=== PATIENT | female | born 1955 | race Caucasian/White ===

== ENCOUNTER 2017-09-22 10:58 | Outpatient (CLI) | payer OTHER ==
--- NOTE | 2017-10-12 08:33 | MMO ---
BILATERAL MAMMOGRAMS: History: Screening mammography. Comparison: Prior exams from [place] were unavailable for direct comparison. FINDINGS: Baseline study. Heterogeneously dense fibroglandular tissue throughout each breast is present. No dominant mass or muñoz spicious calcifications. Metallic marker in the left breast indicates area of prior biopsy. This stud y is interpreted with the assistance of computer aided detection. IMPRESSION: BIRADS category 2 - benign findings. Suggest routine follow up. POS: CHRISTIANO
== END 2017-09-22 10:59 | disposition home or self-care (01) ==
LOC: SCSMAMMO 10:58
PROVIDERS: ATTEND Obstetrics & Gynecology
DX: Z12.31 Encounter for screening mammogram for malignant neoplasm of breast (principal)
CPT/HCPCS: 77067; G0202

== ENCOUNTER 2018-10-31 07:42 | Outpatient (CLI) | payer OTHER ==
--- NOTE | 2018-10-31 09:37 | BD ---
DEXA BONE DENSITY STUDY: HISTORY: Postmenopausal. FINDINGS: Left Forearm BMD (g/cm2) Ulnar distal 0.299 T-Score: -2.5 Mid 0.421 T-Score: -3.4 One-third 0.522 T-Score: -2.9 Total 0.396 T-Score: -3.4 Lumbar Spine: L1 0.939 T-Score: -0.5 L2 0.971 T-Score: -0.5 L3 1.018 T-Score: -0.6 L4 1.015 T-Score: -0.4 L1-L4 0.987 T-Score: -0.5 Impression: Normal bone mineral density of lumbar spine. Osteoporosis of the left forearm. POS: CHRISTIANO
== END 2018-10-31 07:43 | disposition home or self-care (01) ==
LOC: BICMAMMO 07:42
PROVIDERS: ATTEND Orthopaedic Surgery
DX: M81.0 Age-related osteoporosis without current pathological fracture (principal)
CPT/HCPCS: 77080

== ENCOUNTER 2019-09-17 11:27 | Outpatient (CLI) | payer OTHER ==
--- NOTE | 2019-09-17 13:14 | MMO ---
Bilateral MAMMO Bilat Screen [facility]. CLINICAL HISTORY: Patient is 64 years old and is seen for screening. The patient has a history of left Excisional Biopsy more than 10 years ago - benign. VIEWS: The views performed were: bilateral craniocaudal with tomosynthesis and bilateral mediolateral oblique with tomosynthesis. FILMS COMPARED: The present examination has been compared to a prior imaging study performed at [facility] on 09/22/2017. This study has been interpreted with the assistance of computer-aided detection. MAMMOGRAM FINDINGS: The breasts are extremely dense, which may lower the sensitivity of mammography. There is a biopsy clip seen in the left breast. There are no suspicious masses, suspicious calcifications, or new areas of architectural distortion. IMPRESSION: THERE IS NO MAMMOGRAPHIC EVIDENCE OF MALIGNANCY. A ROUTINE FOLLOW-UP MAMMOGRAM IN 1 YEAR IS RECOMMENDED. THE RESULTS OF THIS EXAM WERE SENT TO THE PATIENT. ACR BI-RADS Category 2 - Benign finding MAMMOGRAPHY NOTE: 1. A negative mammogram report should not delay a biopsy if a dominant of clinically suspicious mass is present. 2. Approximately 10% to 15% of breast cancers are not detected by mammography. 3. Adenosis and dense breasts may obscure an underlying neoplasm. Reported by: MICHELLE WELDON MD Electonically Signed: [id number]
== END 2019-09-17 11:28 | disposition home or self-care (01) ==
LOC: BICMAMMO 11:27
PROVIDERS: ATTEND Obstetrics & Gynecology
DX: Z12.31 Encounter for screening mammogram for malignant neoplasm of breast (principal)
CPT/HCPCS: 77063; 77067

== ENCOUNTER 2019-11-08 10:07 | Outpatient (CLI) | payer OTHER ==
--- NOTE | 2019-11-08 11:18 | BD ---
EXAM: DEXA bone density examination HISTORY: 64-year-old postmenopausal female for screening COMPARISON: None FINDINGS: L1--bone mineral density 1.024 g/sq cm; T score 0.3 L2--bone mineral density 1.039 g/sq cm; T score 0.1 L3--bone mineral density 1.086 g/sq cm; T score 0.0 L4--bone mineral density 1.053 g/sq cm; T score -0.1 Total L1-L4--bone mineral density 1.051 g/sq cm; T score 0.0 Left distal third forearm--bone mineral density0.530; T score -2.7 Total distal left forearm--bone mineral density 0.393; T score -3.4 IMPRESSION: Normal bone density. Although the forearm shows the patient is osteoporotic, the spine is more accurate for determining bone density.
== END 2019-11-08 10:08 | disposition home or self-care (01) ==
LOC: BICMAMMO 10:07
PROVIDERS: ATTEND Physician Assistant Surgical
DX: M81.0 Age-related osteoporosis without current pathological fracture (principal)
CPT/HCPCS: 77080

== ENCOUNTER 2019-11-28 06:38 | Outpatient (CLI) | payer OTHER ==
[2019-11-28 14:57] LABS: #Basophils 0.1 thou/uL (0.0-0.2); #Eosinphils 0.2 thou/uL (0.0-0.7); #Lymphocytes 1.5 thou/uL (1.20-3.40); #Monocytes 0.5 thou/uL (0.11-0.59); #Neutrophils 2.8 thou/uL (1.40-6.50); %Basophils 1.6 % (0.0-1.0); %Eosinophils 3.6 % (0.0-10.0); %Monocytes 10.3 % (0.0-10.0); %Neutrophils 54.6 % (42.0-75.0); Hemoglobin 13.4 g/dL (12.0-16.0); Mean Corpuscular HGB CONC 33.3 g/dL (32.0-36.0); Mean Corpuscular Hemoglobin 32.5 pg (27.0-31.0); Mean Corpuscular Volume 97.8 fL (78.0-98.0); Platelet Count 356 thou/uL (130-400); RBC Distribution Width 11.8 % (11.5-14.5); White Blood Cell (WBC) Count 5.1 thou/uL (4.8-10.8)
[2019-11-28 15:09] LABS: Bacteria/HPF None Seen HPF (None Seen); Bilirubin Negative (Negative); Blood, Urine Negative (Negative); Clarity Turbid (Clear); Glucose, Urine (Dipstick) Normal (Negative); Leukocyte Negative Leu/uL (Negative); Nitrite Negative (Negative); Protein, Urine (Dipstick) Negative (Neg-Trace); RBC/HPF None Seen HPF (0-3); Squamous Epithelial 0-3 HPF (0-3); Urobilinogen Normal mg/dL (Less than 2); WBC/HPF None Seen HPF (0-3)
[2019-11-28 15:10] LABS: INR-International Normal Ratio 0.9; Prothrombin Time 12.2 SEC (12.0-14.7)
== END 2019-11-28 06:39 | disposition home or self-care (01) ==
LOC: LABBT 06:38
PROVIDERS: ATTEND Orthopaedic Surgery
DX: Z01.818 Encounter for other preprocedural examination (principal); M17.12 Unilateral primary osteoarthritis, left knee
CPT/HCPCS: 81001; 85025; 85610; 86850; 86900; 86901; 87081; 93005; 93010

== ENCOUNTER 2019-11-28 13:00 | Inpatient (IN) | payer OTHER ==
[2019-12-02 15:52] LABS: Anion Gap 10 mmol/L (10-20); BUN (Urea Nitrogen) 9 mg/dL (9.8-20.1); Calc. Creatinine Clearance 0 mL/min (70-130); Calcium 9.1 mg/dL (7.8-10.44); Carbon Dioxide 24 mmol/L (23-31); Chloride 108 mmol/L (98-107); Estimated GFR-MDRD 86; Glucose 92 mg/dL (80-115); Potassium 3.4 mmol/L (3.5-5.1); Sodium 139 mmol/L (136-145)
[2019-12-09] MEDS ORDERED: Tranexamic Acid 1,000 MG/10 ML VIAL ONE (06:05)
[2019-12-09] MEDS ORDERED: Sodium Chloride 0.9% 100 ML ONE (06:05)
[2019-12-09] MEDS ORDERED: Fentanyl 100 MCG/2 ML VIAL ONE ×2 (06:10→06:21)
[2019-12-09] MEDS ORDERED: Midazolam HCl 2 mg/ml Syrup 5 ml UD Cup ONE (06:21)
[2019-12-09] MEDS ORDERED: Lidocaine 1% (PF) 30 ML VIAL ONE (06:22)
[2019-12-09] MEDS ORDERED: Midazolam HCl 2 mg/2 ml Vial ONE (06:22)
[2019-12-09] MEDS ORDERED: Bupivacaine 0.75% W/DEXTROSE 8.25% 2 ML AMP ONE (06:51)
[2019-12-09] MEDS ORDERED: Propofol 1,000 MG/100 ML VIAL IV ONE (06:51)
[2019-12-09] MEDS ORDERED: Ondansetron PF 4 MG/2 ML Vial IVP PRN ×2 (06:59→09:43)
[2019-12-09] MEDS ORDERED: HYDROcodone/Acetaminophen 10/325 mg Tablet PO PRN ×2 (06:59)
[2019-12-09] MEDS ORDERED: Zolpidem Tartrate 5 MG TAB PO PRN ×2 (06:59→09:43)
[2019-12-09] MEDS ORDERED: Promethazine HCl 25 MG/ML VIAL IM PRN ×2 (06:59→08:59)
[2019-12-09] MEDS ORDERED: Acetaminophen 325 MG TAB PO PRN ×2 (06:59→09:43)
[2019-12-09] MEDS ORDERED: diphenhydrAMINE 25 MG CAP PO PRN (06:59)
[2019-12-09] MEDS ORDERED: traMADol HCl 50 MG TAB PO PRN ×3 (07:00→09:43)
[2019-12-09] MEDS ORDERED: MORPHINE 5 MG/10 ML PF VIAL ONE (07:00)
[2019-12-09] MEDS ORDERED: Diazepam 5 MG TAB PO PRN (07:00)
[2019-12-09] MEDS ORDERED: Ropivacaine 0.5% HCl/PF (150 MG/30 ML VIAL) ONE (07:59)
[2019-12-09] MEDS ORDERED: Sodium Chloride 0.9% 10 ML ONE (07:59)
[2019-12-09] MEDS ORDERED: Ketorolac Tromethamine 30 MG/ML VIAL ONE (07:59)
[2019-12-09] MEDS ORDERED: EPINEPHrine 1 MG/ML AMP ONE (07:59)
[2019-12-09] MEDS ORDERED: Ondansetron HCl/PF 4 MG/2 ML Vial IVP PRN (08:59)
[2019-12-09] MEDS ORDERED: Promethazine HCl 25 MG/ML VIAL SLOW IVP PRN (08:59)
[2019-12-09] MEDS ORDERED: Non-Formulary Item 1 EACH (Cholecalciferol (Vitamin D3) [Vitamin D3] 10,000 UNIT) PO SCH (09:00)
[2019-12-09] MEDS ORDERED: PHYTONADIONE 100 MCG PO SCH (09:00)
[2019-12-09] MEDS ORDERED: Multivit, Therapeutic 1 TAB PO SCH (09:00)
[2019-12-09] MEDS ORDERED: Thyroid 30 MG TAB PO SCH (09:00)
[2019-12-09] MEDS ORDERED: Non-Formulary Item 1 EACH (Multivitamin With Minerals [Multiple Vitamin] 1 TABLET) PO SCH (09:00)
[2019-12-09] MEDS ORDERED: TERIPARATIDE SC SCH ×2 (09:00)
--- NOTE | 2019-12-09 09:24 | RAD ---
EXAM: 2 views of the left knee HISTORY: Knee arthroplasty COMPARISON: None FINDINGS: No knee effusion is seen. Hardware is seen in the distal femur from prior femur fracture re pair. The patient is status post knee arthroplasty without perihardware lucency or fracture. Air in the soft tissues is from recent surgery. IMPRESSION: Status post knee arthroplasty without evidence of complication.
[2019-12-09] MEDS ORDERED: Ropivacaine HCl/PF 250 ML in Premix Bag 1 BAG NERVE BLCK SCH (09:43)
[2019-12-09] MEDS ORDERED: Bupivacaine HCl 0.5%/Epinephrine 1:200,000/PF 30 ml Vial ONE (09:49)
[2019-12-09] MEDS ORDERED: PHENYLEPHRINE-NS 100 MCG/ML 10 ML SYRINGE ONE (09:49)
[2019-12-09] MEDS ORDERED: Ondansetron PF 4 MG/2 ML Vial ONE (09:49)
[2019-12-09 11:07] VITALS: BMI 21.2
[2019-12-09] MEDS: Sodium Chloride 0.9% 1,000 ML IV SCH ×2 (11:23→18:05)
[2019-12-09] MEDS: Ascorbic Acid 500 mg Chewable Tablet PO SCH (11:23)
[2019-12-09] MEDS: Multivitamin W/ Minerals 1 TAB PO SCH (11:24)
[2019-12-09] MEDS: Ferrous Gluconate 324 MG TAB PO SCH ×2 (11:24→21:12)
[2019-12-09] MEDS: Senokot S 8.6-50 MG TAB PO SCH ×2 (11:24→21:11)
[2019-12-09] MEDS: Aspirin 81 mg Enteric Coated Tablet PO SCH ×2 (11:24→21:12)
[2019-12-09] MEDS: Ketorolac Tromethamine 30 MG/ML VIAL IVP SCH ×2 (11:40→18:05)
[2019-12-09] MEDS: CEFAZOLIN 2 GM in Premix Bag 1 BAG IVPB SCH ×2 (13:42→21:17)
[2019-12-09] MEDS ORDERED: Ketorolac Tromethamine 30 MG/ML VIAL IVP SCH (14:00)
--- NOTE | 2019-12-09 14:48 | OP ---
DATE OF PROCEDURE: 12/09/2019 PREOPERATIVE DIAGNOSES: 1. Degenerative joint disease, left knee. 2. Posttraumatic arthritis, left knee. POSTOPERATIVE DIAGNOSES: 1. Degenerative joint disease, left knee. 2. Posttraumatic arthritis, left knee. PROCEDURE PERFORMED: Left total knee arthroplasty using [place] Triathlon 4 femur, 3 tibia, 9 mm CS X3 polyethylene, a 27 patella. INSOLE BEVELER: Nicolasa Bowman PA-C ESTIMATED BLOOD LOSS: Minimal. SPECIMENS: None. DRAINS: None. COMPLICATIONS: None. TOURNIQUET TIME: 54 minutes. PROCEDURE IN DETAIL: After informed consent was obtained in the preoperative holding area, the patient was taken to the operative suite where general anesthesia was induced. Once adequate level of general anesthesia was obtained, the patient was positioned and a well-padded tourniquet was placed around the left proximal thigh. The left lower extremity was then prepped and draped in the usual sterile fashion. Prior to exsanguination, a time-out was called and all members of the surgical team agreed upon site, surgeon, and patient. The extremity was then exsanguinated and the tourniquet was raised. A midline longitudinal incision was then made directly over the patella extending 2 fingerbreadths above the superior pole of the patella and 2 fingerbreadths inferior to the inferior patellar pole of the patella. Deeper subcutaneous layers were dissected sharply and local bleeding was controlled with Bovie electrocautery. A quad tendon longitudinal split was then made sharply and a median parapatellar arthrotomy was carried out both sharp and with Bovie electrocautery, carried down to 1 fingerbreadth medial to the tibial tubercle. The knee was then placed into flexion and the patella was everted nicely, and a copious fat pad ectomy was performed allowing for greater exposure of the tibia. The computer-assisted distal femoral fiducial was then placed and pinned firmly, and the distal femoral cutting guide was pinned firmly into place. The oscillating saw was then used to remove the appropriate amount of bone. The 4-in-1 cutting block was then placed on the distal femur and the oscillating saw was used to remove the appropriate amount of bone off the anterior, posterior, and chamfer cuts. After completion of bone cuts, the anterior cruciate ligament was resected sharply and the posterior cruciate ligament retractor was placed and the tibia was subluxed for better exposure. Partial meniscectomies were carried out, and the tibial computer-assisted fiducial was pinned, and the cutting guide was placed. Oscillating saw was then used to remove the bone, with Hohmann retractors used to take care and protect the collateral ligaments. After the tibial resection was performed, a laminar sheriff sergeant was placed in between the freshened bone cuts. The knee placed at 90 degrees and further bilateral meniscectomies were carried out, and the curved osteotome and curettage were used to remove any excess bone spurs in the posterior compartment. The trial femoral component, tibial baseplate were placed with the appropriate polyethylene trial insert with an appropriate polyethylene spacer and patellar button. The knee was taken through full range of motion with flexion and extension from 0 to 90 degrees and patellar broach squarely in the trochlea without any squinting or subluxation noted. The knee was also stable to varus and valgus stressing at 0, 15, 45, and 90 degrees of flexion. The drawer was negative. All trial components were then removed and the keel punch was used to provide the appropriate defect in the tibia with a mallet. The freshened bone cuts were copiously irrigated with pulsatile lavage of about 1.5 L to remove all excess debris. The freshened bone cuts were then dried with suction and lap sponge. The knee was placed in flexion and retractors were placed to provide access to all bone cuts. Tobramycin-impregnated methyl methacrylate cement was then placed on the freshened bone cuts and implants which were malleted firmly into place. Curettage and [place] elevators were used to remove any excess bone cement. The knee was placed into full extension and the patellar button was placed under compression, and the cement was allowed to cure. Once completed, the components were again taken through full range of motion and copious irrigation of the knee was carried out with another liter of normal saline. All components were inspected fully with full range of motion and varus and valgus stressing. There was no laxity noted and full extension was observed clinically. Primary closure was accomplished with #2 interrupted Vicryl stitch of the arthrotomy defect. This was oversewn with a #2 running Quill barbed stitch. The gravitational platelet system was then injected into the arthrotomy prior to closure. The subcutaneous layer was then closed with a running 0 barbed Monocryl stitch and skin closure accomplished with a running subcuticular 3-0 Monocryl barbed Quill stitch and augmented with cement on the skin. Tourniquet was lowered. Good spontaneous return of distal pulses was noted clinically and a sterile dressing was applied to the incision. The procedure was terminated without any complications. The patient was awakened in the operative suite and the was removed, and the patient was taken to the recovery room in stable condition. Job ID: [id number]
[2019-12-09] MEDS: HYDROcodone/Acetaminophen 10/325 mg Tablet PO PRN ×2 (16:50→21:13)
[2019-12-09] MEDS ORDERED: PROGESTERONE MICRONIZED 200 MG PO SCH (21:00)
[2019-12-09] MEDS: Progesterone,Micronized 100 MG CAP PO SCH (21:12)
[2019-12-10] MEDS: Ketorolac Tromethamine 30 MG/ML VIAL IVP SCH ×4 (00:06→18:11)
[2019-12-10] MEDS: HYDROcodone/Acetaminophen 10/325 mg Tablet PO PRN ×5 (01:43→22:10)
[2019-12-10] MEDS: Sodium Chloride 0.9% 1,000 ML IV SCH ×3 (03:00→23:05)
[2019-12-10] MEDS: Promethazine HCl 25 MG/ML VIAL IM PRN (03:01)
[2019-12-10 05:15] LABS: Hemoglobin 10.7 g/dL (12.0-16.0); Mean Corpuscular HGB CONC 32.9 g/dL (32.0-36.0); Mean Corpuscular Hemoglobin 32.3 pg (27.0-31.0); Mean Corpuscular Volume 98.1 fL (78.0-98.0); Platelet Count 208 thou/uL (130-400); RBC Distribution Width 11.6 % (11.5-14.5); Red Blood Cell (RBC) Count 3.31 mill/uL (4.20-5.40); White Blood Cell (WBC) Count 8.5 thou/uL (4.8-10.8)
[2019-12-10] MEDS: Thyroid 30 MG TAB PO SCH (06:35)
[2019-12-10] MEDS: Aspirin 81 mg Enteric Coated Tablet PO SCH ×2 (08:11→20:49)
[2019-12-10] MEDS: Ascorbic Acid 500 mg Chewable Tablet PO SCH (08:13)
[2019-12-10] MEDS: Senokot S 8.6-50 MG TAB PO SCH ×2 (08:13→20:49)
[2019-12-10] MEDS: Ferrous Gluconate 324 MG TAB PO SCH ×2 (08:13→20:49)
[2019-12-10] MEDS: Multivitamin W/ Minerals 1 TAB PO SCH (08:14)
[2019-12-10] MEDS: Phytonadione 10 MG/ML AMP PO SCH (10:34)
[2019-12-10] MEDS: traMADol HCl 50 MG TAB PO PRN (14:11)
[2019-12-10] MEDS: Fentanyl 100 MCG/2 ML VIAL IV PRN ×2 (16:19→20:48)
[2019-12-10] MEDS: Progesterone,Micronized 100 MG CAP PO SCH (21:02)
[2019-12-11] MEDS: Ketorolac Tromethamine 30 MG/ML VIAL IVP SCH ×2 (00:13→05:17)
[2019-12-11 05:16] LABS: Hemoglobin 11.1 g/dL (12.0-16.0); Mean Corpuscular HGB CONC 34.6 g/dL (32.0-36.0); Mean Corpuscular Hemoglobin 33.9 pg (27.0-31.0); Mean Corpuscular Volume 97.9 fL (78.0-98.0); Mean Platelet Volume 6.3 fL (7.4-10.4); Platelet Count 213 thou/uL (130-400); RBC Distribution Width 11.6 % (11.5-14.5); Red Blood Cell (RBC) Count 3.27 mill/uL (4.20-5.40); White Blood Cell (WBC) Count 7.3 thou/uL (4.8-10.8)
[2019-12-11] MEDS: Thyroid 30 MG TAB PO SCH (05:17)
[2019-12-11] MEDS: Promethazine HCl 25 MG/ML VIAL IM PRN (05:17)
[2019-12-11] MEDS: Aspirin 81 mg Enteric Coated Tablet PO SCH ×2 (07:58→20:32)
[2019-12-11] MEDS: Ascorbic Acid 500 mg Chewable Tablet PO SCH (07:59)
[2019-12-11] MEDS: traMADol HCl 50 MG TAB PO PRN ×2 (07:59→14:18)
[2019-12-11] MEDS: Senokot S 8.6-50 MG TAB PO SCH ×2 (07:59→20:32)
[2019-12-11] MEDS: Ferrous Gluconate 324 MG TAB PO SCH ×2 (07:59→20:36)
[2019-12-11] MEDS: Multivitamin W/ Minerals 1 TAB PO SCH (07:59)
[2019-12-11] MEDS: Sodium Chloride 0.9% 1,000 ML IV SCH ×2 (09:48→20:32)
[2019-12-11] MEDS: Phytonadione 10 MG/ML AMP PO SCH (10:42)
[2019-12-11] MEDS: HYDROcodone/Acetaminophen 10/325 mg Tablet PO PRN ×3 (11:28→20:30)
[2019-12-11] MEDS ORDERED: Bupivacaine 0.5% 50 ML in Sodium Chloride 0.9% 50 ML NERVE BLCK SCH (14:25)
[2019-12-11] MEDS ORDERED: Ropivacaine 0.2% 550 ML 550 ML NERVE BLCK SCH (14:27)
[2019-12-11] MEDS: Progesterone,Micronized 100 MG CAP PO SCH (20:30)
[2019-12-12] MEDS: HYDROcodone/Acetaminophen 10/325 mg Tablet PO PRN ×2 (00:28→04:28)
[2019-12-12] MEDS: Thyroid 30 MG TAB PO SCH (04:30)
[2019-12-12] MEDS: Sodium Chloride 0.9% 1,000 ML IV SCH (04:31)
[2019-12-12] MEDS: Senokot S 8.6-50 MG TAB PO SCH (07:37)
[2019-12-12] MEDS: Ferrous Gluconate 324 MG TAB PO SCH (07:37)
[2019-12-12] MEDS: Ascorbic Acid 500 mg Chewable Tablet PO SCH (07:37)
[2019-12-12] MEDS: Multivitamin W/ Minerals 1 TAB PO SCH (07:38)
[2019-12-12] MEDS: Aspirin 81 mg Enteric Coated Tablet PO SCH (07:38)
[2019-12-12] MEDS: traMADol HCl 50 MG TAB PO PRN (07:41)
[2019-12-12 09:03] VITALS: BP 116/73; TEMP 98.8
[2019-12-12] MEDS: Phytonadione 10 MG/ML AMP PO SCH (09:12)
--- NOTE | 2019-12-12 10:05 | DIS ---
DATE OF ADMISSION: 12/09/2019 DATE OF DISCHARGE: 12/12/2019 CONSULTANTS: [facility] and [facility]. PREOPERATIVE DIAGNOSES: 1. Degenerative joint disease, left knee. 2. Post-traumatic arthritis, left knee. POSTOPERATIVE DIAGNOSES: 1. Degenerative joint disease, left knee. 2. Post-traumatic arthritis, left knee. PROCEDURE PERFORMED: Left total knee arthroplasty using [place] triathlon components. BRIEF HOSPITAL COURSE: This is a 64-year-old female, who was indicated for the above-mentioned procedure. 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 She developed posttraumatic osteoarthritis of the left knee. She has failed outpatient conservative management. She did undergo this procedure in the operative suite, did very well. She was admitted postoperatively to [facility] on [place] [address]. She did get up out of bed on postoperative day zero with physical therapists. She continued to progress well, and her pain was managed by [facility]. By postoperative day #3, the patient was ambulating without any difficulty and is ready to be discharged home. No complications were incurred throughout her hospital stay. DISCHARGE DISPOSITION: Home. DISCHARGE CONDITION: Stable. DISCHARGE INSTRUCTIONS: The patient will follow up as scheduled with Home Health Physical Therapy. She will take her pain medication as prescribed. She will keep her surgical site clean, dry, and intact. DISCHARGE MEDICATIONS: See MEENAKSHI. Job ID: [id number]
== END 2019-12-12 09:58 | disposition home or self-care (01) | DRG 470 ==
LOC: SURG A 12-09 05:31 → SJJU 12-09 11:10
PROVIDERS: ADMIT Orthopaedic Surgery; ATTEND Orthopaedic Surgery
PROC: 0SRD0J9 Replacement of Left Knee Joint with Synthetic Substitute, Cemented, Open Approach (ICD-10-PCS; principal; 2019-12-09)
PROC: 8E0YXBZ Computer Assisted Procedure of Lower Extremity (ICD-10-PCS; 2019-12-09)
DX: M17.12 Unilateral primary osteoarthritis, left knee (principal); E55.9 Vitamin D deficiency, unspecified; Z88.2 Allergy status to sulfonamides; E78.5 Hyperlipidemia, unspecified; Z82.49 Family history of ischemic heart disease and other diseases of the circulatory system; Z83.3 Family history of diabetes mellitus; E03.9 Hypothyroidism, unspecified; Z96.643 Presence of artificial hip joint, bilateral; Z87.891 Personal history of nicotine dependence; M17.32 Unilateral post-traumatic osteoarthritis, left knee
CPT/HCPCS: 36415; 80048; 85027; 86850; 86900; 86901; A4306; C1713; C1776; J0171; J0670; J0690; J1885; J2001; J2250; J2274; J2405; J2550; J2704; J2795; J3010; J3370; J3430; J3490; Q0163

== ENCOUNTER 2021-02-10 13:32 | Outpatient (CLI) | payer BC | END 2021-02-10 13:33 | disposition home or self-care (01) | LOC: BICMAMMO 13:32 | PROVIDERS: ATTEND Internal Medicine | DX: Z12.31 Encounter for screening mammogram for malignant neoplasm of breast (principal) | CPT/HCPCS: 77063; 77067 ==

== ENCOUNTER 2021-02-24 13:30 | Outpatient (CLI) | payer BC, OTHER | END 2021-02-24 13:31 | disposition home or self-care (01) | LOC: BICMAMMO 13:30 | PROVIDERS: ATTEND Physician Assistant Surgical | DX: Z13.820 Encounter for screening for osteoporosis (principal); M85.89 Other specified disorders of bone density and structure, multiple sites | CPT/HCPCS: 77080 ==

== ENCOUNTER 2022-03-17 11:20 | Outpatient (CLI) | payer MEDICARE | END 2022-03-17 11:21 | disposition home or self-care (01) | LOC: BICMAMMO 11:20 | PROVIDERS: ATTEND Internal Medicine | DX: M81.0 Age-related osteoporosis without current pathological fracture (principal); Z79.83 Long term (current) use of bisphosphonates; Z96.643 Presence of artificial hip joint, bilateral | CPT/HCPCS: 77080 ==

== ENCOUNTER 2024-09-24 12:29 | Outpatient (CLI) | payer MEDICARE | END 2024-09-24 12:30 | disposition home or self-care (01) | LOC: BICMAMMO 12:29 | PROVIDERS: ATTEND Internal Medicine | DX: Z12.31 Encounter for screening mammogram for malignant neoplasm of breast (principal); Z91.89 Other specified personal risk factors, not elsewhere classified | CPT/HCPCS: 77063; 77067 ==